=== PATIENT | female | born 1980 | race Caucasian/White ===

== ENCOUNTER 2022-04-04 10:40 | Emergency (ER) | payer OTHER ==
[~2022-04-04] VITALS: Ht 167.6 cm; Wt 127.0 kg
[~2022-04-04 10:40] MED LIST: BUSPIRONE HCL15 MG PO; BUSPIRONE HCL30 MG PO; CLONAZEPAM0.5 MG PO; CONCERTA36 MG PO; COUMADIN2 MG PO; DESIPRAMINE HCL25 MG PO; DEXTROAMP-AMPHE10 MG PO; DEXTROAMP-AMPHE20 MG PO; DEXTROAMP-AMPHE30 MG PO; HYDROXYCHLOROQ200 MG PO; HYDROXYZINE PAM50 MG PO; LEVOTHYROXINE125 MCG PO; LEVOTHYROXINE137 MCG PO; LEVOTHYROXINE150 MCG PO; LEVOXYL; LIOTHYRONINE SO5 MCG PO; LISINOPRIL; METANX TABLET1 EACH; METOPROLOL SUCC50 MG PO; MIRTAZAPINE30 MG PO; OMEPRAZOLE20 MG PO; ONDANSETRON ODT8 MG SL; PIOGLITAZONE HC15 MG PO; PRAZOSIN HCL1 MG PO; PRAZOSIN HCL2 MG PO; PRAZOSIN HCL5 MG PO; SPIRONOLACTONE25 MG PO; VENLAFAXINE H37.5 M1 PO; VENLAFAXINE HC150 MG PO; VITAMIN D21250 MCG PO; VITAMIN D350000 UNIT PO; WARFARIN SODIUM5 MG PO
--- OUTSIDE RECORDS SUMMARY | 2022-04-04 10:45 | XMS ---
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 [place] VISIT COUNT (12 MO.) 1 GARCIA Pineda TOTAL 1 NOTE: Visits indicate total known visits. ED/UCC VISIT TRACKING (12 MO.) 04/04/2022 10:42 GARCIA Garcia [place] TYPE: Emergency COMPLAINT: - MEDICATION REFILL INPATIENT VISIT TRACKING (12 MO.) No inpatient visits to display in this time frame [id number]
[2022-04-04] MEDS ORDERED: METOPROLOL SUCC50 MG PO (15:58)
== END 2022-04-04 16:10 | disposition home or self-care (01) ==
LOC: ED 10:40
DX: Z76.0 Encounter for issue of repeat prescription (principal); I10 Essential (primary) hypertension; Z88.8 Allergy status to other drugs, medicaments and biological substances; Z88.2 Allergy status to sulfonamides; Z88.1 Allergy status to other antibiotic agents; Z88.0 Allergy status to penicillin; Z79.899 Other long term (current) drug therapy; Z79.01 Long term (current) use of anticoagulants
CPT/HCPCS: 99281

== ENCOUNTER 2022-07-02 10:07 | Emergency (ER) | payer OTHER ==
[~2022-07-02] VITALS: Ht 167.6 cm; Wt 92.1 kg
--- OUTSIDE RECORDS SUMMARY | 2022-07-02 10:13 | XMS ---
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 [place] VISIT COUNT (12 MO.) 2 GARCIA Pineda TOTAL 2 NOTE: Visits indicate total known visits. ED/UCC VISIT TRACKING (12 MO.) 07/02/2022 10:08 GARCIA Garcia [place] TYPE: Emergency COMPLAINT: - POSSIBLE ALLERGIC REACTION 04/04/2022 10:42 GARCIA Garcia [place] TYPE: Emergency COMPLAINT: - MEDICATION REFILL DIAGNOSES: - Allergy status to penicillin - Other residential (current) drug therapy - Allergy status to other antibiotic agents - Allergy status to sulfonamides - Allergy status to other drugs, medicaments and biological substances - Encounter for issue of repeat prescription - Essential (primary) hypertension - [facility] (current) use of anticoagulants INPATIENT VISIT TRACKING (12 MO.) No inpatient visits to display in this time frame [id number]
[2022-07-02] MEDS ORDERED: DULOXETINE HCL30 MG PO (11:23)
[2022-07-02] MEDS ORDERED: AMPHETAMINE SAL10 MG PO (11:25)
[2022-07-02] MEDS ORDERED: TRAZODONE HCL50 MG PO (11:25)
[2022-07-02] MEDS ORDERED: ESZOPICLONE3 MG PO (11:27)
== END 2022-07-02 13:40 | disposition home or self-care (01) ==
LOC: ED 10:07
DX: T78.40XA Allergy, unspecified, initial encounter (principal); I10 Essential (primary) hypertension; Z88.2 Allergy status to sulfonamides; Z88.8 Allergy status to other drugs, medicaments and biological substances; Z88.1 Allergy status to other antibiotic agents; Z88.0 Allergy status to penicillin; Z91.012 Allergy to eggs; Z79.899 Other long term (current) drug therapy; Z79.01 Long term (current) use of anticoagulants
CPT/HCPCS: 94640; 99283; J1100

== ENCOUNTER 2022-07-03 12:07 | Emergency (ER) | payer OTHER ==
[~2022-07-03] VITALS: Ht 167.6 cm; Wt 92.1 kg
[~2022-07-03 12:07] MED LIST changes: +AMPHETAMINE SAL10 MG PO; +DULOXETINE HCL30 MG PO; +ESZOPICLONE3 MG PO; +TRAZODONE HCL50 MG PO
--- OUTSIDE RECORDS SUMMARY | 2022-07-03 12:11 | XMS ---
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 [place] VISIT COUNT (12 MO.) [address] [place] [address] TOTAL 3 NOTE: Visits indicate total known visits. 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
== END 2022-07-03 13:00 | disposition home or self-care (01) ==
LOC: ED 12:07
DX: F06.4 Anxiety disorder due to known physiological condition (principal); I10 Essential (primary) hypertension; Z88.2 Allergy status to sulfonamides; Z88.8 Allergy status to other drugs, medicaments and biological substances; Z88.0 Allergy status to penicillin; Z91.012 Allergy to eggs; Z79.899 Other long term (current) drug therapy; Z79.01 Long term (current) use of anticoagulants
CPT/HCPCS: 99283

== ENCOUNTER 2024-02-13 18:10 | Emergency (ER) | payer OTHER ==
[~2024-02-13] VITALS: Ht 167.6 cm; Wt 90.0 kg
--- OUTSIDE RECORDS SUMMARY | ~2024-02-13 | XMS | Continuity of Care Document ---
Demographics + + + | Address | [address] | | | [place] [address] | + + + | Preferred Language | Unknown | + + + | Marital Status | Never | + + + | Pentecostal Affiliation | Unknown | + + + | Race | White | + + + | Ethnic Group | Not or | + + + Author + + + | Author | [facility] | + + + | Organization | [facility] | + + + | Address | [address] | | | [place] [address] | + + + | Phone | | + + + Care Team Providers + + + + | Care Deployment Engineer Name | Role | Phone | + + + + Unavailable | Unavailable | + + + + Unavailable | Unavailable | + + + + Allergies No information. Encounters No information. Functional Status No information. Immunizations No information. Medications + + + + | date | description | facility | + + + + | 2024-01-28 00:00 | Warfarin Sodium 5 MG Oral | [facility] | | | Tablet | | + + + + | 2024-01-28 00:00 | Hydroxychloroquine Sulfate | [facility] | | | 200 MG Oral Tablet | | + + + + | 2024-01-11 00:00 | Levothyroxine Sodium 137 | [facility] | | | MCG Oral Tablet | | + + + + | 2024-01-08 00:00 | Liothyronine Sodium 5 MCG | [facility] | | | Oral Tablet | | + + + + | 2024-01-11 00:00 | Metoprolol Succinate ER 50 | [facility] | | | MG Oral Tablet Extended | | | | Release 24 Hour | | + + + + | 2024-01-28 00:00 | Metoprolol Succinate ER 50 | [facility] | | | MG Oral Tablet Extended | | | | Release 24 Hour | | + + + + | 2024-01-28 00:00 | warfarin sodium 5 MG Oral | [facility] | | | Tablet | | + + + + | 2024-01-11 00:00 | 24 HR metoprolol succinate | [facility] | | | 50 MG Extended Release | | | | Oral Tablet | | + + + + | 2024-01-28 00:00 | 24 HR metoprolol succinate | [facility] | | | 50 MG Extended Release | | | | Oral Tablet | | + + + + | 2024-01-08 00:00 | liothyronine sodium 0.005 | [facility] | | | MG Oral Tablet | | + + + + | 2024-01-11 00:00 | levothyroxine sodium 0.137 | [facility] | | | MG Oral Tablet | | + + + + | 2024-01-28 00:00 | hydroxychloroquine sulfate | [facility] | | | 200 MG Oral Tablet | | + + + + Problems No information. Procedures No information. Results/Labs No information. Social History +--------+ + + | date | description | facility | +--------+ + + Vital Signs + + + + + | date | measurement | value | units | + + + + + | 2024-01-28 00:00 | BMI | 31.6 | 1 | + + + + + | 2024-01-28 00:00 | BP_diastolic | 82 | mmHg | + + + + + | 2024-01-28 00:00 | BP_systolic | 128 | mmHg | + + + + + | 2024-01-28 00:00 | BSA | 2 | 1 | + + + + + | 2024-01-28 00:00 | heart_rate | 1|1| | completed | + + + + + | 2024-01-28 00:00 | heart_rate | 92 | /min | + + + + + | 2024-01-28 00:00 | height_metric | 170.18 | cm | + + + + + | 2024-01-28 00:00 | height_standard | 67 | in | + + + + + | 2024-01-28 00:00 | o2_saturation | 98 | % | + + + + + | 2024-01-28 00:00 | temperature_metric | 36.78 | C | | | | | | + + + + + | 2024-01-28 00:00 | | 98.2 | F | | | temperature_standar | | | | | d | | | + + + + + | 2024-01-28 00:00 | weight_metric | 91.63 | kg | + + + + + | 2024-01-28 00:00 | weight_standard | 202 | lb | + + + + +"
[2024-02-13] MEDS ORDERED: DIPHTH,PERTUSS(ACELL),TET VAC 0.5 ML SYRINGE IM ONE (19:45)
[2024-02-13 21:03] VITALS: BP 135/103
== END 2024-02-13 21:03 | disposition home or self-care (01) ==
LOC: ED 18:10
DX: S61.012A Laceration without foreign body of left thumb without damage to nail, initial encounter (principal); I10 Essential (primary) hypertension; Z88.2 Allergy status to sulfonamides; Z88.0 Allergy status to penicillin; Z88.1 Allergy status to other antibiotic agents; Z88.8 Allergy status to other drugs, medicaments and biological substances; Z91.012 Allergy to eggs; Z79.01 Long term (current) use of anticoagulants; Z79.890 Hormone replacement therapy; Z79.899 Other long term (current) drug therapy; W27.0XXA Contact with workbench tool, initial encounter
CPT/HCPCS: 90471; 90715; 99282-25

== ENCOUNTER 2025-02-17 12:32 | Emergency (ER) | payer OTHER ==
[~2025-02-17] VITALS: Ht 167.6 cm; Wt 97.9 kg
--- OUTSIDE RECORDS SUMMARY | 2025-02-17 12:39 | XMS ---
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 Current PHONE: Unknown David has no Care Guidelines for this patient. [place] VISIT COUNT (12 MO.) [address] [facility] [address] [facility] TOTAL 2 NOTE: Visits indicate total known visits. ED/UCC VISIT TRACKING (12 MO.) 02/17/2025 12:33 GARCIA Garcia [place] TYPE: Emergency COMPLAINT: - MEDICATION REFILL 07/10/2024 18:06 GARCIA Garcia [place] TYPE: Emergency COMPLAINT: - FEVER/ANXIETY INPATIENT VISIT TRACKING (12 MO.) No inpatient visits to display in this time frame [id number]
[2025-02-17 13:05] VITALS: BP 144/87
[2025-02-17] MEDS ORDERED: SYNTHROID137 MCG PO (13:07)
== END 2025-02-17 13:14 | disposition home or self-care (01) ==
LOC: ED 12:32
DX: E03.9 Hypothyroidism, unspecified (principal); Z76.0 Encounter for issue of repeat prescription; I10 Essential (primary) hypertension; Z88.2 Allergy status to sulfonamides; Z88.0 Allergy status to penicillin; Z79.899 Other long term (current) drug therapy
CPT/HCPCS: 99281